=== PATIENT | male | born 1950 | race Caucasian/White ===

== ENCOUNTER 2020-05-02 02:45 | Inpatient (IN) ==
[2020-05-02] MEDS ORDERED: SODIUM CHLORIDE 0.9% 500 ML IV STA (03:01)
[2020-05-02] MEDS ORDERED: ONDANSETRON 4 MG/2 ML VIAL IV STA (03:01)
[2020-05-02 03:35] LABS: Basophils % 0.2 % (0.0-0.8); Eosinophils % 0.1 % (0.00-10.9); Hematocrit 35.9 VOL% (42.0-52.0); Hemoglobin 12.1 GM/DL (14.0-18.0); Immature Granulocytes % 1.4 %; Immature Granulocytes Absolute 0.28 #; Lymphocytes # 0.5 10*3/uL (1.4-4.0); Lymphocytes % 2.6 % (21.2-54.2); Mean Corpuscular HGB Conc 33.7 GM/DL (32-36); Mean Corpuscular Volume 107.8 FL (87-102); Mean Platelet Volume 12.5 FL (9.6-12.0); Monocytes % 4.5 % (1.7-12.7); Neutrophils % 91.2 % (38.7-73.9); Platelet Count 97 T/CUMM (130-400); Red Blood Count 3.33 MC/CUMM (3.8-5.5); Red Cell Distribution Width 15.2 % (9.3-17.3); White Blood Count 19.6 T/CUMM (4-12)
[2020-05-02 03:58] LABS: Alanine Aminotransferase 55 U/L (16-61); Albumin 1.9 G/DL (3.4-5.0); Alkaline Phosphatase 318 U/L (45-117); Aspartate Amino Transferase 80 U/L (0-37); Blood Urea Nitrogen 70 MG/DL (7-18); Calcium 8.1 MG/DL (8.5-10.1); Estimated Glom Filtration Rate 34 ML/MIN; Glucose 116 MG/DL (74-106); Osmolality,Calculated 289.2 MOS/KG (273-304); Total Protein 6.6 G/DL (6.4-8.3); Troponin I < 0.015 NG/ML (0.00-0.045)
[2020-05-02 04:00] LABS: Bacteria,Urine Many /HPF (Few); RBC,Urine 976 /HPF (0-4); Urine Appearance Cloudy (Clear); Urine Color Brown (Yellow); WBC,Urine 467 /HPF (0-6)
[2020-05-02 04:01] LABS: Bilirubin,Urine Trace mg/dL (Negative); Blood, Urine Large mg/dL (Negative); Glucose,Urine (UA) Negative (Negative); Ketones,Urine Negative (Negative); Nitrite,Urine Negative (Negative); Protein,Urine >500 MG/DL; Urine Specific Gravity 1.005 (1.001-1.035)
[2020-05-02 04:02] LABS: Barbiturates Screen,Urine Negative (Negative); Benzodiazepines Screen,Urine Negative (Negative); Cannabinoid Screen,Urine Negative (Negative); Opiate Screen,Urine Negative (Negative); Phencyclidine Screen,Urine Negative (Negative)
[2020-05-02] MEDS ORDERED: MEROPENEM 500 MG in SODIUM CHLORIDE 0.9% 100 ML IV ONE (04:04)
[2020-05-02 04:12] LABS: Band Neutrophils 2 % (0-10); Eosinophils 1 % (0-10); Hypochromasia 1+; Lymphocytes 1 % (20-55); Platelet Estimate Decreased; Segmented Neutrophils 95 % (50-85); Total Cells Counted 100
[2020-05-02] MEDS ORDERED: ONDANSETRON 4 MG/2 ML VIAL IV PRN (04:44)
[2020-05-02] MEDS ORDERED: LORazepam 2 MG/1 ML VIAL IV PRN (05:04)
[2020-05-02] MEDS ORDERED: THIAMINE 200 MG/2 ML VIAL IV STA (05:04)
[2020-05-02] MEDS ORDERED: SODIUM BICARB INJ 75 MEQ in SODIUM CHLORIDE 0.45% 1,000 ML IV SCH (06:00)
[2020-05-02] MEDS: FOLIC ACID 1 MG TABLET PO SCH (10:00)
[2020-05-02] MEDS: VANCOMYCIN INJ 1,250 MG in SODIUM CHLORIDE 0.9% 250 ML IV SCH (10:00)
[2020-05-02] MEDS: PANTOPRAZOLE 40 MG TABLET PO SCH (10:00)
[2020-05-02] MEDS: THIAMINE 200 MG/2 ML VIAL IV SCH (10:00)
[2020-05-02 11:21] LABS: Hepatitis B Core IgM Quant 0.16 Index; Hepatitis B Surface Ag Quant < 0.10 Index; Hepatitis B Surface Ag Result Negative (Negative); Hepatitis C Virus Ab Quant 0.15 Index; Hepatitis C Virus Ab Result Negative (Negative)
[2020-05-02] MEDS ORDERED: TUBERCULIN SKIN TEST 0.1 ML SYRINGE INTRADERM ONE (12:24)
[2020-05-02] MEDS ORDERED: chlordiazePOXIDE 10 MG CAPSULE PO PRN (12:29)
[2020-05-02] MEDS: MEROPENEM 500 MG in SODIUM CHLORIDE 0.9% 100 ML IV SCH ×2 (13:00→21:08)
[2020-05-02] MEDS ORDERED: SODIUM PHOSPHATE ENEMA 133 ML BOTTLE RECTAL ONE (13:54)
[2020-05-02] MEDS ORDERED: BISACODYL 5 MG TABLET PO ONE (13:55)
[2020-05-02] MEDS ORDERED: CARBIDOPA/LEVODOPA 25-250 MG TABLET PO SCH (15:00)
[2020-05-02] MEDS: CARBIDOPA/LEVODOPA 25-100 MG TABLET PO SCH ×2 (17:29→20:22)
[2020-05-02] MEDS: MEGESTROL 400 MG/10 ML UDCUP PO SCH (20:22)
[2020-05-03] MEDS: ACETAMINOPHEN 325 MG TABLET PO PRN (02:05)
[2020-05-03] MEDS: MEROPENEM 500 MG in SODIUM CHLORIDE 0.9% 100 ML IV SCH ×3 (03:46→20:42)
[2020-05-03 05:40] LABS: Basophils % 0.1 % (0.0-0.8); Eosinophils % 0.1 % (0.00-10.9); Hematocrit 27.8 VOL% (42.0-52.0); Hemoglobin 9.3 GM/DL (14.0-18.0); Immature Granulocytes % 1.7 %; Immature Granulocytes Absolute 0.26 #; Lymphocytes # 0.6 10*3/uL (1.4-4.0); Lymphocytes % 3.6 % (21.2-54.2); Mean Corpuscular HGB Conc 33.5 GM/DL (32-36); Mean Platelet Volume 12.3 FL (9.6-12.0); Monocytes % 6.6 % (1.7-12.7); Neutrophils % 87.9 % (38.7-73.9); Platelet Count 114 T/CUMM (130-400); Red Blood Count 2.55 MC/CUMM (3.8-5.5); Red Cell Distribution Width 15.5 % (9.3-17.3); White Blood Count 15.7 T/CUMM (4-12)
[2020-05-03 06:01] LABS: Albumin 1.5 G/DL (3.4-5.0); Bilirubin,Total 2.1 MG/DL (0.2-1.0); Calcium 7.4 MG/DL (8.5-10.1); Osmolality,Calculated 294.5 MOS/KG (273-304); Total Protein 5.3 G/DL (6.4-8.3)
[2020-05-03 06:02] LABS: Albumin 1.6 G/DL (3.4-5.0); Bilirubin,Direct 1.32 MG/DL (0.0-0.20); Bilirubin,Indirect 0.9 MG/DL (0.0-1.0); Bilirubin,Total 2.2 MG/DL (0.2-1.0); Total Protein 5.2 G/DL (6.4-8.3)
[2020-05-03 07:48] LABS: Anisocytosis 2+; Band Neutrophils 7 % (0-10); Lymphocytes 3 % (20-55); Macrocytosis 2+; Platelet Estimate Adequate; Poikilocytosis Slight; Segmented Neutrophils 83 % (50-85); Total Cells Counted 100
[2020-05-03 08:04] LABS: Folate 8.2 NG/ML (5.4-24.0); Vitamin B12 > 2000 PG/ML (211-911)
[2020-05-03 08:41] LABS: Ferritin 671.9 ng/ml (26-388)
[2020-05-03] MEDS: SODIUM BICARB INJ 50 MEQ in DEXTROSE 5% NACL 0.45% 1,000 ML IV SCH ×2 (09:28→23:23)
[2020-05-03] MEDS: THIAMINE 200 MG/2 ML VIAL IV SCH (09:33)
[2020-05-03] MEDS: MEGESTROL 400 MG/10 ML UDCUP PO SCH ×2 (09:39→20:42)
[2020-05-03] MEDS: VANCOMYCIN INJ 1,250 MG in SODIUM CHLORIDE 0.9% 250 ML IV SCH (09:39)
[2020-05-03] MEDS: PANTOPRAZOLE 40 MG TABLET PO SCH (09:39)
[2020-05-03] MEDS: FOLIC ACID 1 MG TABLET PO SCH (09:39)
[2020-05-03] MEDS: CARBIDOPA/LEVODOPA 25-100 MG TABLET PO SCH ×4 (09:39→20:44)
[2020-05-03] MEDS ORDERED: MONTELUKAST 10 MG TABLET PO ONE (11:28)
[2020-05-03] MEDS: ALBUTEROL/IPRATROPIUM 3 ML NEB RESP TX SCH ×2 (13:52→20:04)
[2020-05-03] MEDS: IRON SUCROSE 200 MG in SODIUM CHLORIDE 0.9% 100 ML IV SCH (18:25)
[2020-05-03] MEDS: LACTOBACILLUS RHAMNOSUS GG CAPSULE PO SCH (20:41)
[2020-05-03] MEDS: MONTELUKAST 10 MG TABLET PO SCH (20:41)
[2020-05-03] MEDS: FERROUS SULFATE 325 MG TABLET PO SCH (20:42)
[2020-05-03] MEDS: FLUTICASONE/SALMETEROL 100-50 DISKUS 14 DOSE INH SCH (20:43)
[2020-05-04] MEDS: ALBUTEROL/IPRATROPIUM 3 ML NEB RESP TX SCH ×4 (01:33→19:18)
[2020-05-04] MEDS: MEROPENEM 500 MG in SODIUM CHLORIDE 0.9% 100 ML IV SCH (05:26)
[2020-05-04] MEDS ORDERED: AMIODARONE INJ 450 MG in DEXTROSE 5% 241 ML IV SCH (08:00)
[2020-05-04] MEDS ORDERED: AMIODARONE 450 MG/9 ML VIAL IV ONE (08:01)
[2020-05-04] MEDS: chlordiazePOXIDE 10 MG CAPSULE PO SCH ×3 (09:47→21:05)
[2020-05-04] MEDS: FERROUS SULFATE 325 MG TABLET PO SCH ×2 (09:47→21:04)
[2020-05-04] MEDS: MONTELUKAST 10 MG TABLET PO SCH ×2 (09:47→21:05)
[2020-05-04] MEDS: CARBIDOPA/LEVODOPA 25-100 MG TABLET PO SCH ×4 (09:47→21:05)
[2020-05-04] MEDS: FOLIC ACID 1 MG TABLET PO SCH (09:47)
[2020-05-04] MEDS: LACTOBACILLUS RHAMNOSUS GG CAPSULE PO SCH ×2 (09:47→21:04)
[2020-05-04] MEDS: FLUTICASONE/SALMETEROL 100-50 DISKUS 14 DOSE INH SCH ×2 (09:47→21:05)
[2020-05-04] MEDS: THIAMINE 200 MG/2 ML VIAL IV SCH (09:48)
[2020-05-04] MEDS: PANTOPRAZOLE 40 MG TABLET PO SCH (09:48)
[2020-05-04] MEDS: MEGESTROL 400 MG/10 ML UDCUP PO SCH ×2 (09:48→21:05)
[2020-05-04] MEDS: IRON SUCROSE 200 MG in SODIUM CHLORIDE 0.9% 100 ML IV SCH (09:54)
[2020-05-04] MEDS: VANCOMYCIN INJ 1,250 MG in SODIUM CHLORIDE 0.9% 250 ML IV SCH (10:30)
[2020-05-04 11:07] LABS: Basophils % 0.2 % (0.0-0.8); Eosinophils % 0.1 % (0.00-10.9); Hematocrit 25.7 VOL% (42.0-52.0); Hemoglobin 8.7 GM/DL (14.0-18.0); Immature Granulocytes % 2.4 %; Immature Granulocytes Absolute 0.35 #; Lymphocytes # 0.5 10*3/uL (1.4-4.0); Lymphocytes % 3.2 % (21.2-54.2); Mean Corpuscular HGB Conc 33.9 GM/DL (32-36); Mean Platelet Volume 11.6 FL (9.6-12.0); Monocytes % 8.1 % (1.7-12.7); Platelet Count 139 T/CUMM (130-400); Red Blood Count 2.38 MC/CUMM (3.8-5.5); Red Cell Distribution Width 15.4 % (9.3-17.3); White Blood Count 14.8 T/CUMM (4-12)
[2020-05-04 11:27] LABS: Albumin 1.4 G/DL (3.4-5.0); Bilirubin,Total 1.8 MG/DL (0.2-1.0); Calcium 7.4 MG/DL (8.5-10.1); Osmolality,Calculated 294.7 MOS/KG (273-304)
[2020-05-04] MEDS: ENOXAPARIN 30 MG/0.3 ML SYRINGE SUBCUT SCH (12:04)
[2020-05-04] MEDS: cefTRIAXone 1,000 MG in SYRINGE 1 EACH IV SCH (12:04)
[2020-05-04] MEDS: AMIODARONE 200 MG TABLET PO SCH ×2 (12:04→21:05)
[2020-05-04] MEDS: SODIUM BICARB INJ 50 MEQ in DEXTROSE 5% NACL 0.45% 1,000 ML IV SCH (12:05)
[2020-05-04] MEDS ORDERED: POTASSIUM CHLORIDE 20 MEQ TABLET PO ONE (12:44)
[2020-05-04] MEDS: ACETAMINOPHEN 325 MG TABLET PO PRN ×2 (14:09→21:04)
[2020-05-04] MEDS: AMIODARONE INJ 450 MG in DEXTROSE 5% 241 ML IV SCH (15:17)
[2020-05-05] MEDS: ENOXAPARIN 30 MG/0.3 ML SYRINGE SUBCUT SCH ×3 (01:09→21:27)
[2020-05-05] MEDS: ALBUTEROL/IPRATROPIUM 3 ML NEB RESP TX SCH ×4 (01:27→19:42)
[2020-05-05 06:23] LABS: Basophils % 0.2 % (0.0-0.8); Eosinophils % 0.2 % (0.00-10.9); Hematocrit 25.2 VOL% (42.0-52.0); Hemoglobin 8.5 GM/DL (14.0-18.0); Immature Granulocytes Absolute 0.27 #; Lymphocytes # 0.6 10*3/uL (1.4-4.0); Lymphocytes % 4.2 % (21.2-54.2); Mean Corpuscular HGB Conc 33.7 GM/DL (32-36); Mean Corpuscular Volume 109.1 FL (87-102); Mean Platelet Volume 11.8 FL (9.6-12.0); Monocytes % 8.6 % (1.7-12.7); Neutrophils % 84.8 % (38.7-73.9); Platelet Count 180 T/CUMM (130-400); Red Blood Count 2.31 MC/CUMM (3.8-5.5); Red Cell Distribution Width 15.4 % (9.3-17.3); White Blood Count 13.3 T/CUMM (4-12)
[2020-05-05 06:43] LABS: Hypochromasia 1+; Lymphocytes 3 % (20-55); Platelet Estimate Adequate; Segmented Neutrophils 90 % (50-85); Total Cells Counted 100
[2020-05-05 06:49] LABS: Calcium 7.5 MG/DL (8.5-10.1); Osmolality,Calculated 289.8 MOS/KG (273-304)
[2020-05-05 06:52] LABS: Albumin 1.5 G/DL (3.4-5.0); Bilirubin,Total 1.6 MG/DL (0.2-1.0); Calcium 7.6 MG/DL (8.5-10.1); Osmolality,Calculated 290.8 MOS/KG (273-304); Total Protein 5.3 G/DL (6.4-8.3)
[2020-05-05] MEDS: SODIUM BICARB INJ 50 MEQ in DEXTROSE 5% NACL 0.45% 1,000 ML IV SCH (08:13)
[2020-05-05] MEDS: MONTELUKAST 10 MG TABLET PO SCH ×2 (09:03→21:27)
[2020-05-05] MEDS: chlordiazePOXIDE 10 MG CAPSULE PO SCH ×3 (09:03→21:27)
[2020-05-05] MEDS: CARBIDOPA/LEVODOPA 25-100 MG TABLET PO SCH ×4 (09:03→21:27)
[2020-05-05] MEDS: LACTOBACILLUS RHAMNOSUS GG CAPSULE PO SCH ×2 (09:03→21:27)
[2020-05-05] MEDS: FERROUS SULFATE 325 MG TABLET PO SCH ×2 (09:03→21:27)
[2020-05-05] MEDS: FOLIC ACID 1 MG TABLET PO SCH (09:03)
[2020-05-05] MEDS: PANTOPRAZOLE 40 MG TABLET PO SCH (09:03)
[2020-05-05] MEDS: THIAMINE 200 MG/2 ML VIAL IV SCH (09:04)
[2020-05-05] MEDS: MEGESTROL 400 MG/10 ML UDCUP PO SCH ×2 (09:04→21:27)
[2020-05-05] MEDS: AMIODARONE 200 MG TABLET PO SCH (09:04)
[2020-05-05] MEDS: FLUTICASONE/SALMETEROL 100-50 DISKUS 14 DOSE INH SCH ×2 (09:05→21:27)
[2020-05-05] MEDS: IRON SUCROSE 200 MG in SODIUM CHLORIDE 0.9% 100 ML IV SCH (09:41)
[2020-05-05] MEDS: AMIODARONE INJ 450 MG in DEXTROSE 5% 241 ML IV SCH (11:08)
[2020-05-05] MEDS: cefTRIAXone 1,000 MG in SYRINGE 1 EACH IV SCH (12:22)
[2020-05-06] MEDS: ALBUTEROL/IPRATROPIUM 3 ML NEB RESP TX SCH ×4 (01:48→19:26)
[2020-05-06 05:15] LABS: Basophils % 0.2 % (0.0-0.8); Eosinophils # 0.1 10*3/uL (0.0-0.87); Eosinophils % 0.4 % (0.00-10.9); Hematocrit 25.2 VOL% (42.0-52.0); Hemoglobin 8.3 GM/DL (14.0-18.0); Immature Granulocytes % 1.6 %; Immature Granulocytes Absolute 0.21 #; Lymphocytes # 0.7 10*3/uL (1.4-4.0); Lymphocytes % 5.5 % (21.2-54.2); Mean Corpuscular HGB Conc 32.9 GM/DL (32-36); Mean Platelet Volume 11.7 FL (9.6-12.0); Neutrophils % 84.3 % (38.7-73.9); Platelet Count 212 T/CUMM (130-400); Red Blood Count 2.29 MC/CUMM (3.8-5.5); Red Cell Distribution Width 15.6 % (9.3-17.3); White Blood Count 13.4 T/CUMM (4-12)
[2020-05-06 05:27] LABS: Calcium 7.4 MG/DL (8.5-10.1); Osmolality,Calculated 291.4 MOS/KG (273-304)
[2020-05-06 05:31] LABS: Alanine Aminotransferase < 9 U/L (16-61); Albumin 1.5 G/DL (3.4-5.0); Alkaline Phosphatase 195 U/L (45-117); Aspartate Amino Transferase 36 U/L (0-37); Blood Urea Nitrogen 45 MG/DL (7-18); Calcium 7.9 MG/DL (8.5-10.1); Estimated Glom Filtration Rate 38 ML/MIN; Glucose 124 MG/DL (74-106); Osmolality,Calculated 289.5 MOS/KG (273-304); Total Protein 5.2 G/DL (6.4-8.3)
[2020-05-06] MEDS: LACTOBACILLUS RHAMNOSUS GG CAPSULE PO SCH ×2 (09:17→21:20)
[2020-05-06] MEDS: ENOXAPARIN 30 MG/0.3 ML SYRINGE SUBCUT SCH ×2 (09:17→21:20)
[2020-05-06] MEDS: FERROUS SULFATE 325 MG TABLET PO SCH ×2 (09:17→21:20)
[2020-05-06] MEDS: chlordiazePOXIDE 10 MG CAPSULE PO SCH ×3 (09:17→21:20)
[2020-05-06] MEDS: ASPIRIN EC 81 MG TABLET PO SCH (09:17)
[2020-05-06] MEDS: THIAMINE 200 MG/2 ML VIAL IV SCH (09:17)
[2020-05-06] MEDS: AMIODARONE 200 MG TABLET PO SCH (09:17)
[2020-05-06] MEDS: FLUTICASONE/SALMETEROL 100-50 DISKUS 14 DOSE INH SCH ×2 (09:17→21:20)
[2020-05-06] MEDS: FOLIC ACID 1 MG TABLET PO SCH (09:17)
[2020-05-06] MEDS: IRON SUCROSE 200 MG in SODIUM CHLORIDE 0.9% 100 ML IV SCH (09:18)
[2020-05-06] MEDS: PANTOPRAZOLE 40 MG TABLET PO SCH (09:18)
[2020-05-06] MEDS: CARBIDOPA/LEVODOPA 25-100 MG TABLET PO SCH ×4 (09:18→21:20)
[2020-05-06] MEDS: MEGESTROL 400 MG/10 ML UDCUP PO SCH ×2 (09:18→21:21)
[2020-05-06] MEDS: MONTELUKAST 10 MG TABLET PO SCH ×2 (09:18→21:20)
[2020-05-06] MEDS: METOPROLOL SUCCINATE XL 25 MG TABLET PO SCH (09:18)
[2020-05-06] MEDS: SODIUM BICARB INJ 50 MEQ in DEXTROSE 5% NACL 0.45% 1,000 ML IV SCH (11:24)
[2020-05-06] MEDS: cefTRIAXone 1,000 MG in SYRINGE 1 EACH IV SCH (12:08)
[2020-05-06] MEDS ORDERED: BENZONATATE 100 MG CAPSULE PO PRN (13:43)
[2020-05-07] MEDS: NICOTINE 21 MG/24 HR PATCH TRANSDERM SCH ×2 (00:36→09:19)
[2020-05-07] MEDS: ALBUTEROL/IPRATROPIUM 3 ML NEB RESP TX SCH ×4 (01:46→19:27)
[2020-05-07 06:21] LABS: Basophils # 0.1 10*3/uL (0.0-0.2); Basophils % 0.3 % (0.0-0.8); Eosinophils # 0.1 10*3/uL (0.0-0.87); Eosinophils % 0.4 % (0.00-10.9); Hematocrit 25.5 VOL% (42.0-52.0); Hemoglobin 8.3 GM/DL (14.0-18.0); Immature Granulocytes % 2.3 %; Immature Granulocytes Absolute 0.37 #; Lymphocytes # 0.9 10*3/uL (1.4-4.0); Lymphocytes % 5.9 % (21.2-54.2); Mean Corpuscular HGB Conc 32.5 GM/DL (32-36); Mean Corpuscular Volume 112.3 FL (87-102); Mean Platelet Volume 11.9 FL (9.6-12.0); Monocytes % 6.8 % (1.7-12.7); Neutrophils % 84.3 % (38.7-73.9); Platelet Count 273 T/CUMM (130-400); Red Blood Count 2.27 MC/CUMM (3.8-5.5); Red Cell Distribution Width 15.6 % (9.3-17.3); White Blood Count 15.9 T/CUMM (4-12)
[2020-05-07 06:40] LABS: Calcium 7.8 MG/DL (8.5-10.1); Osmolality,Calculated 285.5 MOS/KG (273-304)
[2020-05-07 06:43] LABS: Albumin 1.5 G/DL (3.4-5.0); Bilirubin,Total 1.3 MG/DL (0.2-1.0); Calcium 7.7 MG/DL (8.5-10.1); Osmolality,Calculated 287.4 MOS/KG (273-304); Total Protein 5.3 G/DL (6.4-8.3)
[2020-05-07 06:57] LABS: Hypochromasia 1+; Microcytosis 1+; Platelet Estimate Adequate
[2020-05-07] MEDS: chlordiazePOXIDE 10 MG CAPSULE PO SCH (09:20)
[2020-05-07] MEDS: CARBIDOPA/LEVODOPA 25-100 MG TABLET PO SCH ×4 (09:20→20:52)
[2020-05-07] MEDS: ASPIRIN EC 81 MG TABLET PO SCH (09:20)
[2020-05-07] MEDS: AMIODARONE 200 MG TABLET PO SCH (09:20)
[2020-05-07] MEDS: MONTELUKAST 10 MG TABLET PO SCH ×2 (09:20→20:51)
[2020-05-07] MEDS: METOPROLOL SUCCINATE XL 25 MG TABLET PO SCH (09:20)
[2020-05-07] MEDS: FOLIC ACID 1 MG TABLET PO SCH (09:20)
[2020-05-07] MEDS: LACTOBACILLUS RHAMNOSUS GG CAPSULE PO SCH ×2 (09:20→20:51)
[2020-05-07] MEDS: PANTOPRAZOLE 40 MG TABLET PO SCH (09:20)
[2020-05-07] MEDS: FERROUS SULFATE 325 MG TABLET PO SCH ×2 (09:20→20:51)
[2020-05-07] MEDS: FLUTICASONE/SALMETEROL 100-50 DISKUS 14 DOSE INH SCH ×2 (09:21→20:52)
[2020-05-07] MEDS: ENOXAPARIN 30 MG/0.3 ML SYRINGE SUBCUT SCH ×2 (09:21→20:52)
[2020-05-07] MEDS: MEGESTROL 400 MG/10 ML UDCUP PO SCH ×2 (09:21→20:52)
[2020-05-07] MEDS: THIAMINE 200 MG/2 ML VIAL IV SCH (09:22)
[2020-05-07] MEDS ORDERED: chlordiazePOXIDE 10 MG CAPSULE PO PRN (13:38)
[2020-05-07] MEDS: cefTRIAXone 1,000 MG in SYRINGE 1 EACH IV SCH (14:40)
[2020-05-07] MEDS: SODIUM BICARB INJ 50 MEQ in DEXTROSE 5% NACL 0.45% 1,000 ML IV SCH (15:03)
[2020-05-07] MEDS: carvediloL 6.25 MG TABLET PO SCH (17:56)
[2020-05-07] MEDS: ACETAMINOPHEN 325 MG TABLET PO PRN (20:51)
[2020-05-08] MEDS: ALBUTEROL/IPRATROPIUM 3 ML NEB RESP TX SCH ×3 (00:26→12:56)
[2020-05-08 05:21] LABS: Basophils # 0.1 10*3/uL (0.0-0.2); Basophils % 0.5 % (0.0-0.8); Eosinophils # 0.1 10*3/uL (0.0-0.87); Eosinophils % 0.7 % (0.00-10.9); Hematocrit 23.4 VOL% (42.0-52.0); Hemoglobin 7.7 GM/DL (14.0-18.0); Immature Granulocytes Absolute 0.27 #; Lymphocytes % 7.3 % (21.2-54.2); Mean Corpuscular HGB Conc 32.9 GM/DL (32-36); Mean Platelet Volume 11.5 FL (9.6-12.0); Monocytes % 5.8 % (1.7-12.7); Neutrophils % 83.7 % (38.7-73.9); Platelet Count 306 T/CUMM (130-400); Red Blood Count 2.09 MC/CUMM (3.8-5.5); Red Cell Distribution Width 15.5 % (9.3-17.3); White Blood Count 13.7 T/CUMM (4-12)
[2020-05-08 05:36] LABS: Calcium 7.6 MG/DL (8.5-10.1); Osmolality,Calculated 285.5 MOS/KG (273-304)
[2020-05-08 05:42] LABS: Alanine Aminotransferase < 9 U/L (16-61); Albumin 1.4 G/DL (3.4-5.0); Alkaline Phosphatase 230 U/L (45-117); Aspartate Amino Transferase 33 U/L (0-37); Blood Urea Nitrogen 35 MG/DL (7-18); Calcium 7.8 MG/DL (8.5-10.1); Estimated Glom Filtration Rate 45 ML/MIN; Glucose 115 MG/DL (74-106); Osmolality,Calculated 287.4 MOS/KG (273-304); Total Protein 5.2 G/DL (6.4-8.3)
[2020-05-08] MEDS: PANTOPRAZOLE 40 MG TABLET PO SCH (08:37)
[2020-05-08] MEDS: MONTELUKAST 10 MG TABLET PO SCH (08:37)
[2020-05-08] MEDS: FERROUS SULFATE 325 MG TABLET PO SCH (08:37)
[2020-05-08] MEDS: FOLIC ACID 1 MG TABLET PO SCH (08:37)
[2020-05-08] MEDS: CARBIDOPA/LEVODOPA 25-100 MG TABLET PO SCH ×3 (08:37→18:37)
[2020-05-08] MEDS: LACTOBACILLUS RHAMNOSUS GG CAPSULE PO SCH (08:37)
[2020-05-08] MEDS: ASPIRIN EC 81 MG TABLET PO SCH (08:37)
[2020-05-08] MEDS: carvediloL 6.25 MG TABLET PO SCH ×2 (08:37→18:38)
[2020-05-08] MEDS: FLUTICASONE/SALMETEROL 100-50 DISKUS 14 DOSE INH SCH (08:38)
[2020-05-08] MEDS: ENOXAPARIN 30 MG/0.3 ML SYRINGE SUBCUT SCH (08:38)
[2020-05-08] MEDS: MEGESTROL 400 MG/10 ML UDCUP PO SCH (08:39)
[2020-05-08] MEDS: NICOTINE 21 MG/24 HR PATCH TRANSDERM SCH (08:39)
[2020-05-08] MEDS: THIAMINE 200 MG/2 ML VIAL IV SCH (10:14)
[2020-05-08 13:00] LABS: Hematocrit 26.9 VOL% (42.0-52.0); Hemoglobin 8.8 GM/DL (14.0-18.0)
[2020-05-08] MEDS: cefTRIAXone 1,000 MG in SYRINGE 1 EACH IV SCH (13:02)
[2020-05-08] MEDS: SODIUM BICARB INJ 50 MEQ in DEXTROSE 5% NACL 0.45% 1,000 ML IV SCH (15:22)
[2020-05-08 16:18] VITALS: BP 107/54
== END 2020-05-08 20:52 | DRG 871 ==
LOC: EDUNIT# → EDBD → N.ED 02:45 → SUATTDRO 04:44 → N.EDINP 04:44 → N.4E 09:17 → N.TELES 05-03 18:37
PROVIDERS: ADMIT Hospitalist; ATTEND Family Medicine

== ENCOUNTER 2020-05-17 12:56 | Inpatient (IN) ==
[2020-05-17] MEDS ORDERED: NALOXONE 0.4 MG/ML VIAL ONE (13:36)
[2020-05-17] MEDS ORDERED: SODIUM CHLORIDE 0.9% 1,000 ML IV STA (13:41)
[2020-05-17] MEDS ORDERED: NALOXONE 0.4 MG/ML VIAL IV STA (13:41)
[2020-05-17 14:47] LABS: Blood, Urine Large mg/dL (Negative); Glucose,Urine (UA) Negative (Negative); Hyaline Casts,Urine 20 /LPF (0-3); Ketones,Urine 5 mg/dL (Negative); Mucus,Urine Moderate /LPF (Occasional); Nitrite,Urine Negative (Negative); Protein,Urine 100 MG/DL; RBC,Urine 328 /HPF (0-4); Squamous Epithelial Cell,Urine Occasional /HPF (0-10); Urine Appearance CLOUDY (Clear); Urine Color Amber (Yellow); Urine Urobilinogen < 2.0 EU/DL (0.2-1.0); WBC,Urine 579 /HPF (0-6)
[2020-05-17 14:48] LABS: Bilirubin,Urine Small mg/dL (Negative)
[2020-05-17 15:57] LABS: Basophils # 0.1 10*3/uL (0.0-0.2); Basophils % 0.6 % (0.0-0.8); Eosinophils % 0.1 % (0.00-10.9); Hematocrit 25.6 VOL% (42.0-52.0); Hemoglobin 8.1 GM/DL (14.0-18.0); Immature Granulocytes % 2.7 %; Immature Granulocytes Absolute 0.57 #; Lymphocytes # 0.7 10*3/uL (1.4-4.0); Lymphocytes % 3.3 % (21.2-54.2); Mean Corpuscular HGB Conc 31.6 GM/DL (32-36); Mean Corpuscular Volume 115.3 FL (87-102); Mean Platelet Volume 10.2 FL (9.6-12.0); Monocytes % 4.2 % (1.7-12.7); Neutrophils % 89.1 % (38.7-73.9); Platelet Count 233 T/CUMM (130-400); Red Blood Count 2.22 MC/CUMM (3.8-5.5); Red Cell Distribution Width 14.5 % (9.3-17.3); White Blood Count 21.5 T/CUMM (4-12)
[2020-05-17 16:28] LABS: Anisocytosis 1+; Eosinophils 1 % (0-10); Hypochromasia 1+; Lymphocytes 4 % (20-55); Platelet Estimate Adequate; Segmented Neutrophils 90 % (50-85); Total Cells Counted 100
[2020-05-17] MEDS ORDERED: LEVOFLOXACIN INJ 500 MG in PREMIX 1 EACH IV STA (16:29)
[2020-05-17 16:39] LABS: Alanine Aminotransferase < 6 U/L (16-61); Albumin 1.7 G/DL (3.4-5.0); Alkaline Phosphatase 215 U/L (45-117); Aspartate Amino Transferase 35 U/L (0-37); Blood Urea Nitrogen 17 MG/DL (7-18); Calcium 7.5 MG/DL (8.5-10.1); Estimated Glom Filtration Rate 41 ML/MIN; Glucose 106 MG/DL (74-106); Osmolality,Calculated 278.5 MOS/KG (273-304); Total Protein 6.4 G/DL (6.4-8.3)
[2020-05-17] MEDS ORDERED: ONDANSETRON 4 MG/2 ML VIAL IV PRN (18:32)
[2020-05-17] MEDS ORDERED: ALBUTEROL 2.5 MG/3 ML NEB RESP TX PRN (18:32)
[2020-05-17] MEDS ORDERED: LACTATED RINGERS 1,000 ML IV ONE (18:51)
[2020-05-17] MEDS ORDERED: DOPamine 800 MG/250 ML PREMIX IV SCH (19:00)
[2020-05-17] MEDS: ALBUTEROL/IPRATROPIUM 3 ML NEB RESP TX SCH (20:50)
[2020-05-17] MEDS: ENOXAPARIN 30 MG/0.3 ML SYRINGE SUBCUT SCH (23:31)
[2020-05-17] MEDS: cefTRIAXone 1,000 MG in SYRINGE 1 EACH IV SCH (23:35)
[2020-05-18] MEDS: ALBUTEROL/IPRATROPIUM 3 ML NEB RESP TX SCH ×4 (00:50→18:42)
[2020-05-18] MEDS: LACTATED RINGERS 1,000 ML IV SCH ×3 (01:50→23:35)
[2020-05-18] MEDS: FAMOTIDINE 20 MG/2 ML VIAL IV SCH ×3 (02:15→21:43)
[2020-05-18 06:25] LABS: Basophils # 0.1 10*3/uL (0.0-0.2); Basophils % 0.7 % (0.0-0.8); Eosinophils % 0.1 % (0.00-10.9); Hematocrit 27.4 VOL% (42.0-52.0); Hemoglobin 8.5 GM/DL (14.0-18.0); Immature Granulocytes % 1.4 %; Immature Granulocytes Absolute 0.25 #; Lymphocytes # 1.1 10*3/uL (1.4-4.0); Lymphocytes % 6.1 % (21.2-54.2); Mean Corpuscular Volume 116.6 FL (87-102); Mean Platelet Volume 9.9 FL (9.6-12.0); Monocytes % 4.2 % (1.7-12.7); Neutrophils % 87.5 % (38.7-73.9); Platelet Count 260 T/CUMM (130-400); Red Blood Count 2.35 MC/CUMM (3.8-5.5); Red Cell Distribution Width 14.3 % (9.3-17.3); White Blood Count 17.4 T/CUMM (4-12)
[2020-05-18 06:54] LABS: Platelet Estimate Normal
[2020-05-18 06:55] LABS: Anisocytosis 2+; Macrocytosis 1+
[2020-05-18 06:57] LABS: Albumin 1.6 G/DL (3.4-5.0); Bilirubin,Total 0.7 MG/DL (0.2-1.0); Calcium 7.7 MG/DL (8.5-10.1); Osmolality,Calculated 274.7 MOS/KG (273-304); Total Protein 6.2 G/DL (6.4-8.3)
[2020-05-18] MEDS ORDERED: LEVOFLOXACIN INJ 500 MG in PREMIX 1 EACH IV SCH (09:00)
[2020-05-18] MEDS: ASPIRIN EC 81 MG TABLET PO SCH (09:52)
[2020-05-18] MEDS: FERROUS SULFATE 325 MG TABLET PO SCH ×2 (09:52→21:41)
[2020-05-18] MEDS: FOLIC ACID 1 MG TABLET PO SCH (09:52)
[2020-05-18] MEDS: MONTELUKAST 10 MG TABLET PO SCH ×2 (09:52→21:41)
[2020-05-18] MEDS: CARBIDOPA/LEVODOPA 25-100 MG TABLET PO SCH ×3 (09:52→16:30)
[2020-05-18] MEDS: FLUTICASONE/SALMETEROL 100-50 DISKUS 14 DOSE INH SCH ×2 (09:52→21:48)
[2020-05-18] MEDS: LACTOBACILLUS RHAMNOSUS GG CAPSULE PO SCH ×2 (09:55→21:41)
[2020-05-18] MEDS ORDERED: SKIN HEALING OINT (AQUAPHOR) 50 GM TUBE TOP PRN (15:13)
[2020-05-18] MEDS: cefTRIAXone 1,000 MG in SYRINGE 1 EACH IV SCH (21:45)
[2020-05-18] MEDS: ENOXAPARIN 30 MG/0.3 ML SYRINGE SUBCUT SCH (21:48)
[2020-05-18] MEDS ORDERED: QUEtiapine 25 MG TABLET PO ONE (22:36)
[2020-05-18] MEDS ORDERED: THIAMINE 100 MG TABLET PO ONE (22:37)
[2020-05-18] MEDS ORDERED: CEFEPIME 2,000 MG VIAL IM SCH (23:00)
[2020-05-19] MEDS: ALBUTEROL/IPRATROPIUM 3 ML NEB RESP TX SCH ×4 (02:35→18:54)
[2020-05-19] MEDS: CARBIDOPA/LEVODOPA 25-100 MG TABLET PO SCH ×4 (06:12→16:52)
[2020-05-19 06:25] LABS: Basophils # 0.1 10*3/uL (0.0-0.2); Basophils % 0.7 % (0.0-0.8); Eosinophils # 0.1 10*3/uL (0.0-0.87); Eosinophils % 0.7 % (0.00-10.9); Hematocrit 26.9 VOL% (42.0-52.0); Hemoglobin 8.3 GM/DL (14.0-18.0); Immature Granulocytes % 1.3 %; Immature Granulocytes Absolute 0.17 #; Lymphocytes # 1.6 10*3/uL (1.4-4.0); Mean Corpuscular HGB Conc 30.9 GM/DL (32-36); Mean Platelet Volume 9.9 FL (9.6-12.0); Monocytes % 6.6 % (1.7-12.7); Neutrophils % 78.7 % (38.7-73.9); Platelet Count 185 T/CUMM (130-400); Red Blood Count 2.28 MC/CUMM (3.8-5.5); Red Cell Distribution Width 14.3 % (9.3-17.3); White Blood Count 13.1 T/CUMM (4-12)
[2020-05-19 06:48] LABS: Albumin 1.6 G/DL (3.4-5.0); Calcium 7.9 MG/DL (8.5-10.1); Osmolality,Calculated 280.3 MOS/KG (273-304); Total Protein 6.2 G/DL (6.4-8.3)
[2020-05-19 06:56] LABS: Hypochromasia 1+; Microcytosis 1+; Ovalocytes Slight; Platelet Estimate Adequate
[2020-05-19] MEDS: FOLIC ACID 1 MG TABLET PO SCH ×2 (08:49→08:50)
[2020-05-19] MEDS: MONTELUKAST 10 MG TABLET PO SCH ×2 (08:49→21:53)
[2020-05-19] MEDS: ASPIRIN EC 81 MG TABLET PO SCH (08:49)
[2020-05-19] MEDS: FERROUS SULFATE 325 MG TABLET PO SCH ×2 (08:50→21:52)
[2020-05-19] MEDS: THIAMINE 100 MG TABLET PO SCH (08:50)
[2020-05-19] MEDS: LACTOBACILLUS RHAMNOSUS GG CAPSULE PO SCH ×2 (08:50→21:52)
[2020-05-19] MEDS: FAMOTIDINE 20 MG/2 ML VIAL IV SCH ×2 (08:56→21:52)
[2020-05-19] MEDS: LACTATED RINGERS 1,000 ML IV SCH ×2 (09:00→17:00)
[2020-05-19] MEDS: FLUTICASONE/SALMETEROL 100-50 DISKUS 14 DOSE INH SCH ×2 (09:00→21:52)
[2020-05-19] MEDS: OLANZapine 2.5 MG TABLET PO SCH (09:38)
[2020-05-19] MEDS: CEFEPIME 2,000 MG in SODIUM CHLORIDE 0.9% 100 ML IV SCH ×2 (10:30→21:38)
[2020-05-19] MEDS: ENOXAPARIN 40 MG/0.4 ML SYRINGE SUBCUT SCH (21:53)
[2020-05-20] MEDS: ALBUTEROL/IPRATROPIUM 3 ML NEB RESP TX SCH ×5 (02:19→18:40)
[2020-05-20] MEDS: LACTATED RINGERS 1,000 ML IV SCH ×4 (06:04→18:44)
[2020-05-20] MEDS: CARBIDOPA/LEVODOPA 25-100 MG TABLET PO SCH ×4 (06:16→18:26)
[2020-05-20] MEDS: OLANZapine 2.5 MG TABLET PO SCH (09:25)
[2020-05-20] MEDS: ASPIRIN EC 81 MG TABLET PO SCH (09:25)
[2020-05-20] MEDS: LACTOBACILLUS RHAMNOSUS GG CAPSULE PO SCH ×2 (09:25→21:19)
[2020-05-20] MEDS: FERROUS SULFATE 325 MG TABLET PO SCH ×2 (09:25→21:19)
[2020-05-20] MEDS: MONTELUKAST 10 MG TABLET PO SCH ×2 (09:25→21:19)
[2020-05-20] MEDS: THIAMINE 100 MG TABLET PO SCH (09:25)
[2020-05-20] MEDS: FOLIC ACID 1 MG TABLET PO SCH ×2 (09:25→09:35)
[2020-05-20] MEDS: CEFEPIME 2,000 MG in SODIUM CHLORIDE 0.9% 100 ML IV SCH ×2 (09:26→21:23)
[2020-05-20] MEDS: FAMOTIDINE 20 MG/2 ML VIAL IV SCH ×2 (09:29→21:23)
[2020-05-20] MEDS: FLUTICASONE/SALMETEROL 100-50 DISKUS 14 DOSE INH SCH ×2 (09:35→21:24)
[2020-05-20] MEDS: ENOXAPARIN 40 MG/0.4 ML SYRINGE SUBCUT SCH (21:24)
[2020-05-21] MEDS ORDERED: QUEtiapine 25 MG TABLET PO ONE (00:21)
[2020-05-21] MEDS: ALBUTEROL/IPRATROPIUM 3 ML NEB RESP TX SCH ×4 (02:05→20:17)
[2020-05-21] MEDS: LACTATED RINGERS 1,000 ML IV SCH ×2 (04:57→19:04)
[2020-05-21 06:34] LABS: Basophils # 0.2 10*3/uL (0.0-0.2); Basophils % 1.4 % (0.0-0.8); Eosinophils # 0.1 10*3/uL (0.0-0.87); Eosinophils % 0.8 % (0.00-10.9); Hematocrit 25.8 VOL% (42.0-52.0); Immature Granulocytes % 1.1 %; Immature Granulocytes Absolute 0.15 #; Lymphocytes # 1.5 10*3/uL (1.4-4.0); Lymphocytes % 11.7 % (21.2-54.2); Mean Corpuscular Volume 114.7 FL (87-102); Mean Platelet Volume 10.1 FL (9.6-12.0); Monocytes % 6.4 % (1.7-12.7); Neutrophils % 78.6 % (38.7-73.9); Platelet Count 172 T/CUMM (130-400); Red Blood Count 2.25 MC/CUMM (3.8-5.5); Red Cell Distribution Width 14.1 % (9.3-17.3); White Blood Count 13.1 T/CUMM (4-12)
[2020-05-21 06:52] LABS: Calcium 7.9 MG/DL (8.5-10.1); Osmolality,Calculated 286.7 MOS/KG (273-304)
[2020-05-21 06:58] LABS: Hypochromasia 1+
[2020-05-21 06:59] LABS: Microcytosis 1+; Platelet Estimate Adequate
[2020-05-21] MEDS: CARBIDOPA/LEVODOPA 25-100 MG TABLET PO SCH ×4 (07:12→16:57)
[2020-05-21] MEDS: FLUTICASONE/SALMETEROL 100-50 DISKUS 14 DOSE INH SCH ×2 (09:09→22:27)
[2020-05-21] MEDS: ASPIRIN EC 81 MG TABLET PO SCH (09:10)
[2020-05-21] MEDS: FOLIC ACID 1 MG TABLET PO SCH ×2 (09:10)
[2020-05-21] MEDS: FERROUS SULFATE 325 MG TABLET PO SCH ×2 (09:10→22:27)
[2020-05-21] MEDS: MONTELUKAST 10 MG TABLET PO SCH ×2 (09:10→22:27)
[2020-05-21] MEDS: OLANZapine 2.5 MG TABLET PO SCH (09:10)
[2020-05-21] MEDS: LACTOBACILLUS RHAMNOSUS GG CAPSULE PO SCH ×2 (09:10→22:27)
[2020-05-21] MEDS: THIAMINE 100 MG TABLET PO SCH (09:10)
[2020-05-21] MEDS: FAMOTIDINE 20 MG/2 ML VIAL IV SCH ×2 (09:13→22:26)
[2020-05-21] MEDS: CEFEPIME 2,000 MG in SODIUM CHLORIDE 0.9% 100 ML IV SCH ×2 (09:22→22:26)
[2020-05-21] MEDS ORDERED: SODIUM CHLORIDE 0.9% 500 ML IV ONE (12:59)
[2020-05-21] MEDS ORDERED: TUBERCULIN SKIN TEST 0.1 ML SYRINGE INTRADERM ONE (17:02)
[2020-05-21] MEDS: ENOXAPARIN 40 MG/0.4 ML SYRINGE SUBCUT SCH (22:26)
[2020-05-22] MEDS: ALBUTEROL/IPRATROPIUM 3 ML NEB RESP TX SCH ×4 (00:05→19:06)
[2020-05-22] MEDS: CARBIDOPA/LEVODOPA 25-100 MG TABLET PO SCH ×5 (06:23→18:17)
[2020-05-22] MEDS: LACTATED RINGERS 1,000 ML IV SCH ×3 (06:24→17:38)
[2020-05-22] MEDS: MONTELUKAST 10 MG TABLET PO SCH ×2 (08:56→23:52)
[2020-05-22] MEDS: THIAMINE 100 MG TABLET PO SCH (08:56)
[2020-05-22] MEDS: LACTOBACILLUS RHAMNOSUS GG CAPSULE PO SCH ×2 (08:56→23:52)
[2020-05-22] MEDS: OLANZapine 2.5 MG TABLET PO SCH (08:56)
[2020-05-22] MEDS: FERROUS SULFATE 325 MG TABLET PO SCH ×2 (08:56→23:52)
[2020-05-22] MEDS: FOLIC ACID 1 MG TABLET PO SCH ×2 (08:57→10:21)
[2020-05-22] MEDS: ASPIRIN EC 81 MG TABLET PO SCH (08:57)
[2020-05-22] MEDS: FLUTICASONE/SALMETEROL 100-50 DISKUS 14 DOSE INH SCH ×2 (08:57→23:52)
[2020-05-22] MEDS: FAMOTIDINE 20 MG/2 ML VIAL IV SCH (08:58)
[2020-05-22] MEDS: CEFEPIME 2,000 MG in SODIUM CHLORIDE 0.9% 100 ML IV SCH (09:00)
[2020-05-22] MEDS ORDERED: ACETAMINOPHEN 325 MG TABLET PO PRN (10:34)
[2020-05-22 10:59] LABS: Calcium 7.5 MG/DL (8.5-10.1); Osmolality,Calculated 296.1 MOS/KG (273-304)
[2020-05-22] MEDS ORDERED: HYDROmorphone 2 MG/1 ML VIAL IV ONE (12:31)
[2020-05-22] MEDS: traMADol 50 MG TABLET PO SCH ×2 (15:03→23:52)
[2020-05-22] MEDS ORDERED: POTASSIUM CHLORIDE RIDER 10 MEQ in PREMIX 1 EACH IV PRN (17:19)
[2020-05-22] MEDS ORDERED: NALOXONE 0.4 MG/ML VIAL IV ONE (20:34)
[2020-05-22] MEDS ORDERED: LACTATED RINGERS 500 ML IV ONE (21:09)
[2020-05-22 21:13] LABS: ABG Base Excess -4.1 MMOL/L (-2.5-2.5); ABG HCO3 20.9 MMOL/L (20-26); ABG Oxygen Saturation 95.5 % (95-100); ABG PCO2 27.5 MM HG (35-48); ABG PH 7.452 (7.35-7.45); ABG PO2 77.4 MM HG (80-95); ABG TCO2 18.2 MMOL/L (23-27)
[2020-05-22 21:30] LABS: Basophils # 0.1 10*3/uL (0.0-0.2); Basophils % 0.5 % (0.0-0.8); Eosinophils # 0.1 10*3/uL (0.0-0.87); Eosinophils % 0.4 % (0.00-10.9); Hematocrit 22.7 VOL% (42.0-52.0); Hemoglobin 6.9 GM/DL (14.0-18.0); Immature Granulocytes % 0.6 %; Immature Granulocytes Absolute 0.09 #; Lymphocytes # 0.9 10*3/uL (1.4-4.0); Lymphocytes % 6.2 % (21.2-54.2); Mean Corpuscular HGB Conc 30.4 GM/DL (32-36); Mean Corpuscular Volume 117.6 FL (87-102); Monocytes % 4.6 % (1.7-12.7); NRBC # 0.02 10*3/uL; Neutrophils % 87.7 % (38.7-73.9); Platelet Count 98 T/CUMM (130-400); Red Blood Count 1.93 MC/CUMM (3.8-5.5); Red Cell Distribution Width 14.6 % (9.3-17.3); White Blood Count 13.9 T/CUMM (4-12)
[2020-05-22] MEDS ORDERED: LACTATED RINGERS 1,000 ML IV SCH (21:30)
[2020-05-22 21:48] LABS: Anisocytosis 3+; Calcium 7.6 MG/DL (8.5-10.1); Hypochromasia 2+; Lymphocytes 4 % (20-55); Macrocytosis 2+; Microcytosis 1+; Myelocytes 1 %; Osmolality,Calculated 295.3 MOS/KG (273-304); Poikilocytosis 4+; Segmented Neutrophils 94 % (50-85); Total Cells Counted 100
[2020-05-22] MEDS ORDERED: SODIUM CHLORIDE 0.9% 1,000 ML IV PRN (23:25)
[2020-05-22] MEDS: ENOXAPARIN 40 MG/0.4 ML SYRINGE SUBCUT SCH (23:51)
[2020-05-23] MEDS: ALBUTEROL/IPRATROPIUM 3 ML NEB RESP TX SCH ×4 (00:13→19:58)
[2020-05-23] MEDS: FAMOTIDINE 20 MG/2 ML VIAL IV SCH ×3 (00:21→20:27)
[2020-05-23] MEDS ORDERED: LACTATED RINGERS 1,000 ML IV SCH (00:30)
[2020-05-23] MEDS: CEFEPIME 2,000 MG in SODIUM CHLORIDE 0.9% 100 ML IV SCH ×2 (00:37→08:58)
[2020-05-23] MEDS: CARBIDOPA/LEVODOPA 25-100 MG TABLET PO SCH ×4 (07:30→17:33)
[2020-05-23] MEDS: OLANZapine 2.5 MG TABLET PO SCH (08:52)
[2020-05-23] MEDS: LACTOBACILLUS RHAMNOSUS GG CAPSULE PO SCH ×2 (08:52→20:26)
[2020-05-23] MEDS: FOLIC ACID 1 MG TABLET PO SCH ×2 (08:52→09:04)
[2020-05-23] MEDS: FERROUS SULFATE 325 MG TABLET PO SCH ×2 (08:53→20:26)
[2020-05-23] MEDS: MONTELUKAST 10 MG TABLET PO SCH ×2 (08:53→20:26)
[2020-05-23] MEDS: THIAMINE 100 MG TABLET PO SCH (08:53)
[2020-05-23] MEDS: traMADol 50 MG TABLET PO SCH (09:05)
[2020-05-23] MEDS ORDERED: cefTRIAXone 1,000 MG VIAL IM SCH (10:00)
[2020-05-23] MEDS ORDERED: SODIUM CHLORIDE 0.9% 1,000 ML IV SCH (10:00)
[2020-05-23 10:36] LABS: Basophils # 0.1 10*3/uL (0.0-0.2); Basophils % 0.6 % (0.0-0.8); Eosinophils % 0.2 % (0.00-10.9); Hematocrit 26.4 VOL% (42.0-52.0); Immature Granulocytes % 0.8 %; Immature Granulocytes Absolute 0.14 #; Lymphocytes # 1.7 10*3/uL (1.4-4.0); Lymphocytes % 9.3 % (21.2-54.2); Mean Corpuscular HGB Conc 32.6 GM/DL (32-36); Mean Platelet Volume 10.5 FL (9.6-12.0); Monocytes % 5.7 % (1.7-12.7); NRBC # 0.02 10*3/uL; Neutrophils % 83.4 % (38.7-73.9); Platelet Count 108 T/CUMM (130-400); Red Cell Distribution Width 18.2 % (9.3-17.3); White Blood Count 18.1 T/CUMM (4-12)
[2020-05-23 10:37] LABS: Hemoglobin 8.6 GM/DL (14.0-18.0); Red Blood Count 2.49 MC/CUMM (3.8-5.5)
[2020-05-23 10:46] LABS: INR 1.3
[2020-05-23] MEDS: FLUTICASONE/SALMETEROL 100-50 DISKUS 14 DOSE INH SCH ×2 (10:47→21:04)
[2020-05-23 10:53] LABS: % Iron Saturation 60.2 % (18-50)
[2020-05-23 10:55] LABS: Band Neutrophils 1 % (0-10); Eosinophils 1 % (0-10); Hypochromasia 2+; Lymphocytes 6 % (20-55); Microcytosis 1+; Platelet Estimate Decreased; Segmented Neutrophils 89 % (50-85); Total Cells Counted 100
[2020-05-23 10:58] LABS: Alanine Aminotransferase < 6 U/L (16-61); Albumin 1.4 G/DL (3.4-5.0); Alkaline Phosphatase 116 U/L (45-117); Aspartate Amino Transferase 37 U/L (0-37); Bilirubin,Indirect 0.7 MG/DL (0.0-1.0); Blood Urea Nitrogen 16 MG/DL (7-18); Calcium 7.6 MG/DL (8.5-10.1); Estimated Glom Filtration Rate 54 ML/MIN; Ferritin 893.5 ng/ml (26-388); Glucose 108 MG/DL (74-106); Osmolality,Calculated 293.4 MOS/KG (273-304); Total Protein 5.5 G/DL (6.4-8.3)
[2020-05-23] MEDS ORDERED: MAGNESIUM SULF RIDER 2 GM in PREMIX 1 EACH IV ONE (11:13)
[2020-05-23] MEDS: cefTRIAXone 1,000 MG in SYRINGE 1 EACH IV SCH (11:14)
[2020-05-23] MEDS: SODIUM CHLOR 0.45% KCL 20 MEQ 20 MEQ/1,000 ML BAG IV SCH (12:14)
[2020-05-24] MEDS: SODIUM CHLOR 0.45% KCL 20 MEQ 20 MEQ/1,000 ML BAG IV SCH ×2 (01:10→14:25)
[2020-05-24] MEDS: ALBUTEROL/IPRATROPIUM 3 ML NEB RESP TX SCH ×4 (01:15→20:19)
[2020-05-24] MEDS ORDERED: FUROSEMIDE 40 MG/4 ML VIAL IV ONE (03:41)
[2020-05-24] MEDS: ASPIRIN EC 81 MG TABLET PO SCH (08:13)
[2020-05-24] MEDS: FERROUS SULFATE 325 MG TABLET PO SCH ×2 (08:13→21:52)
[2020-05-24] MEDS: MONTELUKAST 10 MG TABLET PO SCH ×2 (08:13→21:52)
[2020-05-24] MEDS: FAMOTIDINE 20 MG/2 ML VIAL IV SCH ×2 (08:13→21:52)
[2020-05-24] MEDS: LACTOBACILLUS RHAMNOSUS GG CAPSULE PO SCH ×2 (08:13→21:52)
[2020-05-24] MEDS: THIAMINE 100 MG TABLET PO SCH (08:13)
[2020-05-24] MEDS: CARBIDOPA/LEVODOPA 25-100 MG TABLET PO SCH ×4 (08:13→16:19)
[2020-05-24] MEDS: FOLIC ACID 1 MG TABLET PO SCH (08:13)
[2020-05-24] MEDS: FLUTICASONE/SALMETEROL 100-50 DISKUS 14 DOSE INH SCH ×2 (10:02→22:29)
[2020-05-24] MEDS: cefTRIAXone 1,000 MG in SYRINGE 1 EACH IV SCH (10:50)
[2020-05-25] MEDS: SODIUM CHLOR 0.45% KCL 20 MEQ 20 MEQ/1,000 ML BAG IV SCH ×3 (00:51→15:11)
[2020-05-25] MEDS: ALBUTEROL/IPRATROPIUM 3 ML NEB RESP TX SCH ×4 (01:01→19:36)
[2020-05-25] MEDS: CARBIDOPA/LEVODOPA 25-100 MG TABLET PO SCH ×4 (06:20→18:22)
[2020-05-25 06:31] LABS: Basophils # 0.1 10*3/uL (0.0-0.2); Basophils % 0.7 % (0.0-0.8); Eosinophils # 0.1 10*3/uL (0.0-0.87); Eosinophils % 1.1 % (0.00-10.9); Hematocrit 28.8 VOL% (42.0-52.0); Hemoglobin 9.2 GM/DL (14.0-18.0); Immature Granulocytes % 1.2 %; Immature Granulocytes Absolute 0.15 #; Lymphocytes # 1.7 10*3/uL (1.4-4.0); Lymphocytes % 13.8 % (21.2-54.2); Mean Corpuscular HGB Conc 31.9 GM/DL (32-36); Mean Corpuscular Volume 107.5 FL (87-102); Mean Platelet Volume 11.5 FL (9.6-12.0); Monocytes % 7.9 % (1.7-12.7); NRBC # 0.02 10*3/uL; Neutrophils % 75.3 % (38.7-73.9); Platelet Count 91 T/CUMM (130-400); Red Blood Count 2.68 MC/CUMM (3.8-5.5); Red Cell Distribution Width 18.1 % (9.3-17.3); White Blood Count 12.1 T/CUMM (4-12)
[2020-05-25 06:59] LABS: Calcium 7.9 MG/DL (8.5-10.1); Osmolality,Calculated 290.4 MOS/KG (273-304)
[2020-05-25 07:37] LABS: Anisocytosis 1+; Eosinophils 3 % (0-10); Hypochromasia 2+; Lymphocytes 12 % (20-55); Platelet Estimate Decreased; Segmented Neutrophils 81 % (50-85); Total Cells Counted 100
[2020-05-25] MEDS: FAMOTIDINE 20 MG/2 ML VIAL IV SCH ×2 (09:36→20:15)
[2020-05-25] MEDS: cefTRIAXone 1,000 MG in SYRINGE 1 EACH IV SCH (09:36)
[2020-05-25] MEDS: ASPIRIN EC 81 MG TABLET PO SCH (09:37)
[2020-05-25] MEDS: FERROUS SULFATE 325 MG TABLET PO SCH ×2 (09:37→20:16)
[2020-05-25] MEDS: MONTELUKAST 10 MG TABLET PO SCH ×2 (09:37→20:14)
[2020-05-25] MEDS: THIAMINE 100 MG TABLET PO SCH (09:37)
[2020-05-25] MEDS: FOLIC ACID 1 MG TABLET PO SCH (09:37)
[2020-05-25] MEDS: LACTOBACILLUS RHAMNOSUS GG CAPSULE PO SCH ×2 (09:37→20:13)
[2020-05-25] MEDS: FLUTICASONE/SALMETEROL 100-50 DISKUS 14 DOSE INH SCH (18:22)
[2020-05-26] MEDS: SODIUM CHLOR 0.45% KCL 20 MEQ 20 MEQ/1,000 ML BAG IV SCH ×3 (01:07→23:38)
[2020-05-26] MEDS: ALBUTEROL/IPRATROPIUM 3 ML NEB RESP TX SCH ×4 (01:39→19:23)
[2020-05-26] MEDS: FLUTICASONE/SALMETEROL 100-50 DISKUS 14 DOSE INH SCH ×3 (03:25→20:15)
[2020-05-26] MEDS: cefTRIAXone 1,000 MG in SYRINGE 1 EACH IV SCH (09:37)
[2020-05-26] MEDS: FAMOTIDINE 20 MG/2 ML VIAL IV SCH ×2 (09:38→20:14)
[2020-05-26] MEDS: ASPIRIN EC 81 MG TABLET PO SCH (09:38)
[2020-05-26] MEDS: FERROUS SULFATE 325 MG TABLET PO SCH ×2 (09:38→20:14)
[2020-05-26] MEDS: FOLIC ACID 1 MG TABLET PO SCH (09:38)
[2020-05-26] MEDS: THIAMINE 100 MG TABLET PO SCH (09:38)
[2020-05-26] MEDS: MONTELUKAST 10 MG TABLET PO SCH ×2 (09:38→20:14)
[2020-05-26] MEDS: LACTOBACILLUS RHAMNOSUS GG CAPSULE PO SCH ×2 (09:38→20:14)
[2020-05-26] MEDS: CARBIDOPA/LEVODOPA 25-100 MG TABLET PO SCH ×3 (10:00→17:37)
[2020-05-27] MEDS: ALBUTEROL/IPRATROPIUM 3 ML NEB RESP TX SCH ×4 (00:38→19:28)
[2020-05-27] MEDS: CARBIDOPA/LEVODOPA 25-100 MG TABLET PO SCH ×5 (06:04→18:31)
[2020-05-27 06:19] LABS: Calcium 7.7 MG/DL (8.5-10.1); Osmolality,Calculated 285.7 MOS/KG (273-304)
[2020-05-27 06:40] LABS: Basophils # 0.1 10*3/uL (0.0-0.2); Basophils % 0.9 % (0.0-0.8); Eosinophils # 0.1 10*3/uL (0.0-0.87); Eosinophils % 1.2 % (0.00-10.9); Hematocrit 30.7 VOL% (42.0-52.0); Hemoglobin 9.5 GM/DL (14.0-18.0); Immature Granulocytes % 2.8 %; Immature Granulocytes Absolute 0.24 #; Lymphocytes # 1.8 10*3/uL (1.4-4.0); Lymphocytes % 20.6 % (21.2-54.2); Mean Corpuscular HGB Conc 30.9 GM/DL (32-36); Mean Corpuscular Volume 109.6 FL (87-102); Mean Platelet Volume 12.2 FL (9.6-12.0); NRBC # 0.02 10*3/uL; Neutrophils % 61.5 % (38.7-73.9); Platelet Count 94 T/CUMM (130-400); Red Cell Distribution Width 17.7 % (9.3-17.3); White Blood Count 8.7 T/CUMM (4-12)
[2020-05-27 07:03] LABS: Platelet Estimate Decreased
[2020-05-27] MEDS: FAMOTIDINE 20 MG/2 ML VIAL IV SCH ×2 (09:08→20:38)
[2020-05-27] MEDS: MONTELUKAST 10 MG TABLET PO SCH ×2 (09:08→20:44)
[2020-05-27] MEDS: cefTRIAXone 1,000 MG in SYRINGE 1 EACH IV SCH (09:08)
[2020-05-27] MEDS: FOLIC ACID 1 MG TABLET PO SCH (09:08)
[2020-05-27] MEDS: ASPIRIN EC 81 MG TABLET PO SCH (09:08)
[2020-05-27] MEDS: FERROUS SULFATE 325 MG TABLET PO SCH ×2 (09:09→20:44)
[2020-05-27] MEDS: THIAMINE 100 MG TABLET PO SCH (09:09)
[2020-05-27] MEDS: LACTOBACILLUS RHAMNOSUS GG CAPSULE PO SCH ×2 (09:09→20:44)
[2020-05-27] MEDS: FLUTICASONE/SALMETEROL 100-50 DISKUS 14 DOSE INH SCH ×2 (09:10→20:39)
[2020-05-27] MEDS: DEXT 5% NACL 0.45% KCL 10 MEQ 10 MEQ/1,000 ML BAG IV SCH (16:27)
[2020-05-27] MEDS: SODIUM CHLOR 0.45% KCL 20 MEQ 20 MEQ/1,000 ML BAG IV SCH (22:33)
[2020-05-28] MEDS: ALBUTEROL/IPRATROPIUM 3 ML NEB RESP TX SCH ×3 (01:07→13:23)
[2020-05-28] MEDS: DEXT 5% NACL 0.45% KCL 10 MEQ 10 MEQ/1,000 ML BAG IV SCH (02:10)
[2020-05-28 05:39] LABS: Basophils # 0.1 10*3/uL (0.0-0.2); Basophils % 0.9 % (0.0-0.8); Eosinophils # 0.1 10*3/uL (0.0-0.87); Eosinophils % 1.3 % (0.00-10.9); Hematocrit 30.4 VOL% (42.0-52.0); Hemoglobin 9.5 GM/DL (14.0-18.0); Immature Granulocytes % 2.6 %; Lymphocytes # 1.5 10*3/uL (1.4-4.0); Lymphocytes % 19.1 % (21.2-54.2); Mean Corpuscular HGB Conc 31.3 GM/DL (32-36); Mean Corpuscular Volume 109.4 FL (87-102); Mean Platelet Volume 12.2 FL (9.6-12.0); Monocytes % 10.1 % (1.7-12.7); Platelet Count 95 T/CUMM (130-400); Red Blood Count 2.78 MC/CUMM (3.8-5.5); Red Cell Distribution Width 17.4 % (9.3-17.3); White Blood Count 7.7 T/CUMM (4-12)
[2020-05-28 05:52] LABS: Calcium 7.7 MG/DL (8.5-10.1); Osmolality,Calculated 290.4 MOS/KG (273-304)
[2020-05-28] MEDS: CARBIDOPA/LEVODOPA 25-100 MG TABLET PO SCH ×3 (06:45→16:11)
[2020-05-28 07:46] VITALS: BP 124/78
[2020-05-28 08:53] LABS: Platelet Estimate Adequate
[2020-05-28 08:54] LABS: Anisocytosis 3+; Macrocytosis 2+; Microcytosis 1+; Polychromasia Slight
[2020-05-28] MEDS: LACTOBACILLUS RHAMNOSUS GG CAPSULE PO SCH (09:05)
[2020-05-28] MEDS: MONTELUKAST 10 MG TABLET PO SCH (09:06)
[2020-05-28] MEDS: FERROUS SULFATE 325 MG TABLET PO SCH (09:06)
[2020-05-28] MEDS: ASPIRIN EC 81 MG TABLET PO SCH (09:06)
[2020-05-28] MEDS: THIAMINE 100 MG TABLET PO SCH (09:06)
[2020-05-28] MEDS: FAMOTIDINE 20 MG/2 ML VIAL IV SCH ×2 (09:06→12:16)
[2020-05-28] MEDS: FOLIC ACID 1 MG TABLET PO SCH (09:06)
[2020-05-28] MEDS: cefTRIAXone 1,000 MG in SYRINGE 1 EACH IV SCH (12:15)
== END 2020-05-28 16:57 | DRG 698 ==
LOC: EDUNIT# → EDBD → N.ED 12:56 → N.EDINP 18:32 → SUATTDRO 18:32 → N.ICU 05-18 01:16 → N.TELES 05-18 13:08 → N.ICU 05-23 03:36 → N.3E 05-24 11:37
PROVIDERS: ADMIT Internal Medicine; ATTEND Internal Medicine Geriatric Medicine

== ENCOUNTER 2020-06-07 09:57 | Inpatient (IN) ==
[2020-06-07] MEDS ORDERED: PIPERACILLIN/TAZOBACTAM 3,375 MG in SODIUM CHLORIDE 0.9% 100 ML IV STA (10:14)
[2020-06-07] MEDS ORDERED: SODIUM CHLORIDE 0.9% 1,000 ML IV STA (10:14)
[2020-06-07 11:04] LABS: Basophils # 0.1 10*3/uL (0.0-0.2); Eosinophils % 0.3 % (0.00-10.9); Hematocrit 29.1 VOL% (42.0-52.0); Hemoglobin 8.5 GM/DL (14.0-18.0); Immature Granulocytes Absolute 0.09 #; Lymphocytes % 22.7 % (21.2-54.2); Mean Corpuscular HGB Conc 29.2 GM/DL (32-36); Mean Corpuscular Volume 113.7 FL (87-102); Mean Platelet Volume 11.1 FL (9.6-12.0); Monocytes % 6.6 % (1.7-12.7); Neutrophils % 68.4 % (38.7-73.9); Platelet Count 196 T/CUMM (130-400); Red Blood Count 2.56 MC/CUMM (3.8-5.5); Red Cell Distribution Width 17.3 % (9.3-17.3); White Blood Count 8.6 T/CUMM (4-12)
[2020-06-07 11:24] LABS: Alanine Aminotransferase < 6 U/L (16-61); Albumin 1.1 G/DL (3.4-5.0); Alkaline Phosphatase 104 U/L (45-117); Aspartate Amino Transferase 63 U/L (0-37); Blood Urea Nitrogen 33 MG/DL (7-18); Carbon Dioxide 21 MMOL/L (21-32); Estimated Glom Filtration Rate 23 ML/MIN; Glucose 98 MG/DL (74-106); Osmolality,Calculated 331.9 MOS/KG (273-304); Potassium 3.6 MMOL/L (3.5-5.1); Total Protein 5.8 G/DL (6.4-8.3)
[2020-06-07 11:31] LABS: Sodium 165 MMOL/L (136-145)
[2020-06-07] MEDS ORDERED: DOPamine 800 MG/250 ML PREMIX IV PRN (11:46)
[2020-06-07 11:54] LABS: Hypochromasia 1+; Microcytosis 1+; Platelet Estimate Adequate
[2020-06-07] MEDS: DOPamine 800 MG/250 ML PREMIX IV SCH (12:00)
[2020-06-07] MEDS ORDERED: ONDANSETRON 4 MG/2 ML VIAL IV PRN (12:02)
[2020-06-07] MEDS ORDERED: ALBUTEROL/IPRATROPIUM 3 ML NEB RESP TX PRN (12:02)
[2020-06-07] MEDS ORDERED: ACETAMINOPHEN 325 MG TABLET PO PRN (12:02)
[2020-06-07] MEDS ORDERED: HYDROCORTISONE 100 MG VIAL IV STA (12:07)
[2020-06-07] MEDS ORDERED: SKIN HEALING OINT (AQUAPHOR) 50 GM TUBE TOP PRN (12:08)
[2020-06-07] MEDS: PANTOPRAZOLE 40 MG VIAL IV SCH (13:09)
[2020-06-07] MEDS: SODIUM CHLORIDE 0.45% 1,000 ML IV SCH ×2 (13:10→22:00)
[2020-06-07] MEDS: HYDROCORTISONE 100 MG VIAL IV SCH ×2 (13:24→21:55)
[2020-06-07] MEDS ORDERED: VANCOMYCIN INJ 1,000 MG in SODIUM CHLORIDE 0.9% 250 ML IV PRN (14:03)
[2020-06-07] MEDS: CEFEPIME 1,000 MG in SODIUM CHLORIDE 0.9% 100 ML IV SCH (14:48)
[2020-06-07] MEDS: ENOXAPARIN 30 MG/0.3 ML SYRINGE SUBCUT SCH (14:48)
[2020-06-07] MEDS ORDERED: VANCOMYCIN INJ 1,000 MG in SODIUM CHLORIDE 0.9% 250 ML IV ONE (15:00)
[2020-06-07 16:38] LABS: Bacteria,Urine Occasional /HPF (Few); Bilirubin,Urine Negative (Negative); Blood, Urine Large mg/dL (Negative); Glucose,Urine (UA) Negative (Negative); Hyaline Casts,Urine 5 /LPF (0-3); Ketones,Urine Negative (Negative); Mucus,Urine Occasional /LPF (Occasional); Nitrite,Urine Negative (Negative); Protein,Urine 30 MG/DL; RBC,Urine 5 /HPF (0-4); Urine Appearance Slightly Hazy (Clear); Urine Color Yellow (Yellow); Urine Specific Gravity 1.012 (1.001-1.035); Urine Urobilinogen < 2.0 EU/DL (0.2-1.0); WBC,Urine 119 /HPF (0-6)
[2020-06-07] MEDS: CARBIDOPA/LEVODOPA 25-100 MG TABLET PO SCH (18:25)
[2020-06-07] MEDS: TRIAMCINOLONE 0.1% CREAM 15 GM TUBE TOP SCH (21:55)
[2020-06-08] MEDS: LACTOBACILLUS RHAMNOSUS GG CAPSULE PO SCH ×4 (00:30→21:27)
[2020-06-08] MEDS: FERROUS SULFATE 325 MG TABLET PO SCH ×4 (00:30→21:27)
[2020-06-08] MEDS: CARBIDOPA/LEVODOPA 25-100 MG TABLET PO SCH ×4 (02:37→18:30)
[2020-06-08] MEDS: CEFEPIME 1,000 MG in SODIUM CHLORIDE 0.9% 100 ML IV SCH ×2 (02:53→16:00)
[2020-06-08] MEDS ORDERED: CLORAZEPATE 3.75 MG TABLET PO PRN (03:54)
[2020-06-08] MEDS: HYDROCORTISONE 100 MG VIAL IV SCH ×2 (04:38→12:47)
[2020-06-08] MEDS: SODIUM CHLORIDE 0.45% 1,000 ML IV SCH ×3 (05:32→22:33)
[2020-06-08 05:40] LABS: Albumin 1.2 G/DL (3.4-5.0); Bilirubin,Total 1.4 MG/DL (0.2-1.0); Calcium 7.1 MG/DL (8.5-10.1); Osmolality,Calculated 327.9 MOS/KG (273-304); Total Protein 6.6 G/DL (6.4-8.3)
[2020-06-08 06:03] LABS: Basophils # 0.1 10*3/uL (0.0-0.2); Basophils % 0.9 % (0.0-0.8); Hematocrit 34.4 VOL% (42.0-52.0); Immature Granulocytes % 1.7 %; Immature Granulocytes Absolute 0.18 #; Lymphocytes # 1.6 10*3/uL (1.4-4.0); Lymphocytes % 15.3 % (21.2-54.2); Mean Corpuscular HGB Conc 28.8 GM/DL (32-36); Mean Corpuscular Volume 114.3 FL (87-102); Mean Platelet Volume 11.9 FL (9.6-12.0); Monocytes % 2.9 % (1.7-12.7); Neutrophils % 79.2 % (38.7-73.9); Platelet Count 186 T/CUMM (130-400); Red Blood Count 3.01 MC/CUMM (3.8-5.5); Red Cell Distribution Width 16.8 % (9.3-17.3); White Blood Count 10.4 T/CUMM (4-12)
[2020-06-08 06:09] LABS: Hemoglobin 9.9 GM/DL (14.0-18.0)
[2020-06-08 07:05] LABS: Hypochromasia 1+; Macrocytosis 1+
[2020-06-08] MEDS: MULTIVITAMIN (CENTRUM) TABLET PO SCH (10:30)
[2020-06-08] MEDS: ASPIRIN EC 81 MG TABLET PO SCH (10:34)
[2020-06-08] MEDS: THIAMINE 100 MG TABLET PO SCH (10:34)
[2020-06-08] MEDS: FOLIC ACID 1 MG TABLET PO SCH (10:34)
[2020-06-08] MEDS: TRIAMCINOLONE 0.1% CREAM 15 GM TUBE TOP SCH ×2 (11:14→21:13)
[2020-06-08] MEDS: PANTOPRAZOLE 40 MG VIAL IV SCH (12:47)
[2020-06-08] MEDS: ENOXAPARIN 30 MG/0.3 ML SYRINGE SUBCUT SCH (12:48)
[2020-06-08] MEDS ORDERED: VANCOMYCIN INJ 1,250 MG in SODIUM CHLORIDE 0.9% 250 ML IV ONE (14:00)
[2020-06-08] MEDS: DOPamine 800 MG/250 ML PREMIX IV SCH (20:30)
[2020-06-09] MEDS: CARBIDOPA/LEVODOPA 25-100 MG TABLET PO SCH ×4 (01:24→17:41)
[2020-06-09] MEDS: HYDROCORTISONE 100 MG VIAL IV SCH ×2 (01:24→13:14)
[2020-06-09] MEDS: CEFEPIME 1,000 MG in SODIUM CHLORIDE 0.9% 100 ML IV SCH ×2 (02:38→13:49)
[2020-06-09 04:21] LABS: Calcium 6.8 MG/DL (8.5-10.1); Osmolality,Calculated 324.3 MOS/KG (273-304); Potassium 3.4 MMOL/L (3.5-5.1)
[2020-06-09 04:33] LABS: Alanine Aminotransferase < 6 U/L (16-61); Albumin 1.1 G/DL (3.4-5.0); Alkaline Phosphatase 119 U/L (45-117); Aspartate Amino Transferase 42 U/L (0-37); Blood Urea Nitrogen 44 MG/DL (7-18); Calcium 6.8 MG/DL (8.5-10.1); Carbon Dioxide 18 MMOL/L (21-32); Estimated Glom Filtration Rate 34 ML/MIN; Glucose 196 MG/DL (74-106); Osmolality,Calculated 322.3 MOS/KG (273-304); Potassium 3.4 MMOL/L (3.5-5.1); Sodium 155 MMOL/L (136-145); Total Protein 5.4 G/DL (6.4-8.3)
[2020-06-09] MEDS: SODIUM CHLORIDE 0.45% 1,000 ML IV SCH ×3 (06:11→20:27)
[2020-06-09 06:38] LABS: Basophils % 0.2 % (0.0-0.8); Hematocrit 26.9 VOL% (42.0-52.0); Hemoglobin 8.2 GM/DL (14.0-18.0); Immature Granulocytes % 1.2 %; Immature Granulocytes Absolute 0.11 #; Lymphocytes # 1.1 10*3/uL (1.4-4.0); Lymphocytes % 12.1 % (21.2-54.2); Mean Corpuscular HGB Conc 30.5 GM/DL (32-36); Mean Corpuscular Volume 109.8 FL (87-102); Monocytes % 3.4 % (1.7-12.7); Neutrophils % 83.1 % (38.7-73.9); Platelet Count 134 T/CUMM (130-400); Red Blood Count 2.45 MC/CUMM (3.8-5.5); Red Cell Distribution Width 16.3 % (9.3-17.3); White Blood Count 9.4 T/CUMM (4-12)
[2020-06-09] MEDS: ASPIRIN EC 81 MG TABLET PO SCH (10:19)
[2020-06-09] MEDS: FERROUS SULFATE 325 MG TABLET PO SCH ×2 (10:19→21:11)
[2020-06-09] MEDS: MULTIVITAMIN (CENTRUM) TABLET PO SCH (10:19)
[2020-06-09] MEDS: LACTOBACILLUS RHAMNOSUS GG CAPSULE PO SCH ×2 (10:19→21:11)
[2020-06-09] MEDS: TRIAMCINOLONE 0.1% CREAM 15 GM TUBE TOP SCH ×2 (10:20→21:11)
[2020-06-09] MEDS: FOLIC ACID 1 MG TABLET PO SCH (10:20)
[2020-06-09] MEDS: THIAMINE 100 MG TABLET PO SCH (10:20)
[2020-06-09] MEDS ORDERED: SODIUM CHLORIDE 0.9% 1,000 ML IV ONE (10:43)
[2020-06-09] MEDS: POTASSIUM CHLORIDE RIDER 10 MEQ in PREMIX 1 EACH IV PRN ×3 (11:47→14:34)
[2020-06-09] MEDS: DOPamine 800 MG/250 ML PREMIX IV SCH (12:40)
[2020-06-09] MEDS: PANTOPRAZOLE 40 MG VIAL IV SCH (13:13)
[2020-06-09] MEDS: ENOXAPARIN 30 MG/0.3 ML SYRINGE SUBCUT SCH (13:14)
[2020-06-09] MEDS ORDERED: VANCOMYCIN INJ 1,000 MG in SODIUM CHLORIDE 0.9% 250 ML IV ONE (15:00)
[2020-06-10] MEDS: CARBIDOPA/LEVODOPA 25-100 MG TABLET PO SCH ×4 (01:02→17:25)
[2020-06-10] MEDS: HYDROCORTISONE 100 MG VIAL IV SCH ×2 (01:02→12:17)
[2020-06-10] MEDS: CEFEPIME 1,000 MG in SODIUM CHLORIDE 0.9% 100 ML IV SCH ×2 (03:20→14:43)
[2020-06-10] MEDS: SODIUM CHLORIDE 0.45% 1,000 ML IV SCH ×3 (04:19→20:41)
[2020-06-10 05:18] LABS: Hematocrit 24.6 VOL% (42.0-52.0); Hemoglobin 7.3 GM/DL (14.0-18.0); Immature Granulocytes % 1.7 %; Immature Granulocytes Absolute 0.13 #; Lymphocytes # 0.8 10*3/uL (1.4-4.0); Lymphocytes % 10.1 % (21.2-54.2); Mean Corpuscular HGB Conc 29.7 GM/DL (32-36); Mean Corpuscular Volume 110.8 FL (87-102); Mean Platelet Volume 11.4 FL (9.6-12.0); NRBC # 0.02 10*3/uL; Neutrophils % 85.2 % (38.7-73.9); Platelet Count 141 T/CUMM (130-400); Red Blood Count 2.22 MC/CUMM (3.8-5.5); Red Cell Distribution Width 16.2 % (9.3-17.3); White Blood Count 7.8 T/CUMM (4-12)
[2020-06-10 05:38] LABS: Calcium 6.3 MG/DL (8.5-10.1); Osmolality,Calculated 311.6 MOS/KG (273-304); Potassium 3.3 MMOL/L (3.5-5.1)
[2020-06-10] MEDS: POTASSIUM CHLORIDE RIDER 10 MEQ in PREMIX 1 EACH IV PRN ×7 (06:02→17:24)
[2020-06-10 07:38] LABS: Alanine Aminotransferase < 9 U/L (16-61); Albumin 1.2 G/DL (3.4-5.0); Alkaline Phosphatase 140 U/L (45-117); Aspartate Amino Transferase 38 U/L (0-37); Blood Urea Nitrogen 35 MG/DL (7-18); Calcium 6.5 MG/DL (8.5-10.1); Carbon Dioxide 18 MMOL/L (21-32); Estimated Glom Filtration Rate 48 ML/MIN; Glucose 137 MG/DL (74-106); Osmolality,Calculated 312.6 MOS/KG (273-304); Potassium 3.3 MMOL/L (3.5-5.1); Sodium 153 MMOL/L (136-145); Total Protein 5.2 G/DL (6.4-8.3)
[2020-06-10] MEDS: THIAMINE 100 MG TABLET PO SCH (08:11)
[2020-06-10] MEDS: FOLIC ACID 1 MG TABLET PO SCH (08:11)
[2020-06-10] MEDS: LACTOBACILLUS RHAMNOSUS GG CAPSULE PO SCH ×2 (08:11→20:41)
[2020-06-10] MEDS: ASPIRIN EC 81 MG TABLET PO SCH (08:11)
[2020-06-10] MEDS: MULTIVITAMIN (CENTRUM) TABLET PO SCH (08:11)
[2020-06-10] MEDS: FERROUS SULFATE 325 MG TABLET PO SCH ×2 (08:13→20:41)
[2020-06-10] MEDS: TRIAMCINOLONE 0.1% CREAM 15 GM TUBE TOP SCH ×2 (08:14→20:41)
[2020-06-10] MEDS ORDERED: SODIUM CHLORIDE 0.9% 1,000 ML IV ONE (11:34)
[2020-06-10] MEDS: ENOXAPARIN 30 MG/0.3 ML SYRINGE SUBCUT SCH (12:17)
[2020-06-10] MEDS: PANTOPRAZOLE 40 MG VIAL IV SCH (12:17)
[2020-06-10] MEDS: DOPamine 800 MG/250 ML PREMIX IV SCH (12:18)
[2020-06-11] MEDS: CARBIDOPA/LEVODOPA 25-100 MG TABLET PO SCH ×4 (00:26→17:37)
[2020-06-11] MEDS: HYDROCORTISONE 100 MG VIAL IV SCH ×2 (00:26→13:45)
[2020-06-11] MEDS: CEFEPIME 1,000 MG in SODIUM CHLORIDE 0.9% 100 ML IV SCH ×2 (03:29→13:51)
[2020-06-11] MEDS: SODIUM CHLORIDE 0.45% 1,000 ML IV SCH ×2 (04:32→13:49)
[2020-06-11 04:42] LABS: Basophils % 0.1 % (0.0-0.8); Hematocrit 24.9 VOL% (42.0-52.0); Hemoglobin 7.5 GM/DL (14.0-18.0); Immature Granulocytes % 2.2 %; Immature Granulocytes Absolute 0.15 #; Lymphocytes # 0.9 10*3/uL (1.4-4.0); Lymphocytes % 12.4 % (21.2-54.2); Mean Corpuscular HGB Conc 30.1 GM/DL (32-36); Mean Corpuscular Volume 109.2 FL (87-102); Mean Platelet Volume 11.7 FL (9.6-12.0); Monocytes % 4.1 % (1.7-12.7); Neutrophils % 81.2 % (38.7-73.9); Platelet Count 141 T/CUMM (130-400); Red Blood Count 2.28 MC/CUMM (3.8-5.5); Red Cell Distribution Width 15.9 % (9.3-17.3); White Blood Count 6.9 T/CUMM (4-12)
[2020-06-11 05:16] LABS: Calcium 6.6 MG/DL (8.5-10.1); Osmolality,Calculated 304.1 MOS/KG (273-304); Potassium 3.7 MMOL/L (3.5-5.1)
[2020-06-11] MEDS ORDERED: MAGNESIUM SULF RIDER 2 GM in PREMIX 1 EACH IV ONE (08:10)
[2020-06-11] MEDS: THIAMINE 100 MG TABLET PO SCH (08:28)
[2020-06-11] MEDS: LACTOBACILLUS RHAMNOSUS GG CAPSULE PO SCH ×2 (08:28→20:38)
[2020-06-11] MEDS: ASPIRIN EC 81 MG TABLET PO SCH (08:28)
[2020-06-11] MEDS: FERROUS SULFATE 325 MG TABLET PO SCH ×2 (08:28→20:39)
[2020-06-11] MEDS: MULTIVITAMIN (CENTRUM) TABLET PO SCH (08:28)
[2020-06-11] MEDS: TRIAMCINOLONE 0.1% CREAM 15 GM TUBE TOP SCH ×2 (08:29→20:46)
[2020-06-11] MEDS: FOLIC ACID 1 MG TABLET PO SCH (08:32)
[2020-06-11] MEDS: DOPamine 800 MG/250 ML PREMIX IV SCH (11:48)
[2020-06-11] MEDS: PANTOPRAZOLE 40 MG VIAL IV SCH (11:50)
[2020-06-11] MEDS: ENOXAPARIN 30 MG/0.3 ML SYRINGE SUBCUT SCH (13:50)
[2020-06-12] MEDS: CARBIDOPA/LEVODOPA 25-100 MG TABLET PO SCH ×4 (01:05→17:18)
[2020-06-12] MEDS: HYDROCORTISONE 100 MG VIAL IV SCH ×2 (01:07→12:45)
[2020-06-12] MEDS: CEFEPIME 1,000 MG in SODIUM CHLORIDE 0.9% 100 ML IV SCH ×2 (02:51→15:50)
[2020-06-12] MEDS: SODIUM CHLORIDE 0.45% 1,000 ML IV SCH (02:54)
[2020-06-12 06:10] LABS: Basophils % 0.2 % (0.0-0.8); Hematocrit 25.3 VOL% (42.0-52.0); Hemoglobin 7.8 GM/DL (14.0-18.0); Immature Granulocytes % 1.9 %; Immature Granulocytes Absolute 0.12 #; Lymphocytes # 0.8 10*3/uL (1.4-4.0); Lymphocytes % 11.9 % (21.2-54.2); Mean Corpuscular HGB Conc 30.8 GM/DL (32-36); Mean Corpuscular Volume 109.5 FL (87-102); Mean Platelet Volume 12.3 FL (9.6-12.0); Monocytes % 3.1 % (1.7-12.7); NRBC # 0.02 10*3/uL; Neutrophils % 82.9 % (38.7-73.9); Platelet Count 121 T/CUMM (130-400); Red Blood Count 2.31 MC/CUMM (3.8-5.5); Red Cell Distribution Width 15.6 % (9.3-17.3); White Blood Count 6.5 T/CUMM (4-12)
[2020-06-12 06:42] LABS: Calcium 6.9 MG/DL (8.5-10.1); Osmolality,Calculated 300.1 MOS/KG (273-304); Potassium 3.5 MMOL/L (3.5-5.1)
[2020-06-12] MEDS ORDERED: SODIUM CHLORIDE 0.9% 1,000 ML IV PRN (08:12)
[2020-06-12] MEDS ORDERED: SODIUM BICARBONATE 650 MG TABLET PO SCH (09:00)
[2020-06-12] MEDS ORDERED: APIXABAN 5 MG TABLET PO SCH (09:15)
[2020-06-12] MEDS: THIAMINE 100 MG TABLET PO SCH (10:01)
[2020-06-12] MEDS: TRIAMCINOLONE 0.1% CREAM 15 GM TUBE TOP SCH (10:01)
[2020-06-12] MEDS: FOLIC ACID 1 MG TABLET PO SCH (10:01)
[2020-06-12] MEDS: ASPIRIN EC 81 MG TABLET PO SCH (10:02)
[2020-06-12] MEDS: LACTOBACILLUS RHAMNOSUS GG CAPSULE PO SCH (10:02)
[2020-06-12] MEDS: FERROUS SULFATE 325 MG TABLET PO SCH (10:02)
[2020-06-12] MEDS: MULTIVITAMIN (CENTRUM) TABLET PO SCH (10:05)
[2020-06-12] MEDS: PANTOPRAZOLE 40 MG VIAL IV SCH (12:39)
[2020-06-12] MEDS ORDERED: MAGNESIUM HYDROXIDE SUSP 30 ML UDCUP PO ONE (13:37)
[2020-06-12] MEDS ORDERED: FUROSEMIDE 20 MG/2 ML VIAL IV ONE (13:58)
[2020-06-12 23:19] VITALS: BP 113/73
[2020-06-19] MEDS ORDERED: APIXABAN 5 MG TABLET PO SCH (09:00)
== END 2020-06-12 20:47 | DRG 871 ==
LOC: EDUNIT# → N.ED 09:57 → N.EDINP 12:02 → SUATTDRO 12:02 → N.ICU 13:35 → N.3E 06-11 12:56
PROVIDERS: ADMIT Family Medicine; ATTEND Internal Medicine